=== PATIENT | male | born 1990 | race Caucasian/White ===

== ENCOUNTER 2017-11-28 17:41 | Emergency (ER) | payer OTHER ==
[~2017-11-28] VITALS: Ht 172.7 cm; Wt 97.1 kg
== END 2017-11-28 19:37 | disposition home or self-care (01) ==
LOC: ER 17:41
DX: H10.89 Other conjunctivitis (principal); H01.005 Unspecified blepharitis left lower eyelid

== ENCOUNTER → 2017-12-13 | Emergency (ER) | payer OTHER ==
[~2017-12-13] VITALS: Ht 172.7 cm; Wt 95.3 kg
== END | disposition home or self-care (01) ==
LOC: ER 11:19
DX: R22.0 Localized swelling, mass and lump, head (principal); L02.811 Cutaneous abscess of head [any part, except face]